=== PATIENT | male | born 1980 | race Caucasian/White ===

== ENCOUNTER 2019-08-18 12:21 | Inpatient (IN) | payer MEDICAID ==
[~2019-08-18] VITALS: Ht 177.8 cm; Wt 115.6 kg
[~2019-08-18 12:21] MED LIST: DIPH25 PO; DSS100 PO; GABA-1181 PO; ILOP2TAB2 PO; ILOP4TAB2 PO; METO25 PO; OMEP20 PO; TOPI100T37 PO; TOPI25 PO
[2019-08-18 16:00] VITALS: BP 161/106
[2019-08-18] MEDS ORDERED: LORazepam 2 MG TABLET PO PRN (16:15)
[2019-08-18] MEDS ORDERED: QUEtiapine FUMARATE 100 MG TABLET PO PRN (16:15)
[2019-08-18] MEDS ORDERED: QUET300T2 PO (16:19)
[2019-08-18] MEDS ORDERED: LORA10TA7 PO (16:26)
[2019-08-18 18:00] VITALS: BP 162/109
[2019-08-18] MEDS: CloNIDine HCL 0.1 MG TABLET PO PRN (18:29)
[2019-08-18] MEDS ORDERED: MAGNESIUM HYDROXIDE SUSPENSION 30 ML UDCUP PO PRN (18:30)
[2019-08-18] MEDS ORDERED: DOCUSATE SODIUM 100 MG CAPSULE PO PRN (18:30)
[2019-08-18] MEDS ORDERED: ONDANSETRON HCL 4 MG TABLET PO PRN (18:30)
[2019-08-18] MEDS ORDERED: LOPERAMIDE HCL 2 MG CAPSULE PO PRN (18:30)
[2019-08-18] MEDS ORDERED: ACETAMINOPHEN 325 MG TABLET PO PRN (18:30)
[2019-08-18] MEDS ORDERED: MAG HYDROX/AL HYDROX/SIMETH ES 30 ML SUSPENSION UDCUP PO PRN (18:30)
[2019-08-18] MEDS ORDERED: BACITRACIN 28.4 GM OINTMENT TP PRN (18:30)
[2019-08-18] MEDS ORDERED: OMEPRAZOLE 20 MG CAPSULE PO PRN (18:30)
[2019-08-18] MEDS ORDERED: BENZOCAINE/MENTHOL LOZENGE MM PRN (18:30)
[2019-08-18] MEDS ORDERED: IBUPROFEN 600 MG TABLET PO PRN (18:30)
[2019-08-18] MEDS ORDERED: PETROLATUM,WHITE 28 GM JELLY TP PRN (18:30)
[2019-08-18] MEDS ORDERED: ALBUTEROL SULFATE HFA 90 MCG/PUFF 8 GM INHALER IH PRN (18:30)
[2019-08-18] MEDS ORDERED: PNEUMOCOCCAL VACCINE POLYVALENT 0.5 ML VIAL [PPSV23] IM ONE (19:00)
[2019-08-18 19:48] VITALS: BP 154/101
[2019-08-18 20:00] VITALS: BP 144/97
[2019-08-18] MEDS ORDERED: LOSARTAN POTASSIUM 50 MG TABLET PO SCH (22:30)
[2019-08-19 00:15] VITALS: BP 140/105
[2019-08-19] MEDS: ZOLPIDEM TARTRATE 10 MG TABLET PO PRN (00:16)
[2019-08-19] MEDS: LORazepam 2 MG TABLET PO PRN ×2 (00:17→12:24)
[2019-08-19 00:45] VITALS: BP 138/99
[2019-08-19 06:30] VITALS: BP 133/109
[2019-08-19 08:17] LABS: BASOPHILS % (AUTO) 0.3 % (0.0-2.0); HEMATOCRIT 48.9 % (41-53); HEMOGLOBIN 16.4 g/dL (13.5-17.5); LYMPHOCYTES # (AUTO) 2.6 K/uL (1.0-4.8); LYMPHOCYTES % (AUTO) 32.8 % (22.0-44.0); MEAN CORPUSCULAR HGB CONC 33.5 G/dL (31.0-37.0); MEAN CORPUSCULAR VOLUME 86 fL (80-100); MONOCYTES # (AUTO) 0.7 K/uL (0.1-1.0); MONOCYTES % (AUTO) 9.2 % (2.0-9.0); NEUTROPHILS # (AUTO) 4.4 K/uL (1.8-7.7); NEUTROPHILS % (AUTO) 55.7 % (40.0-70.0); PLATELET COUNT (AUTO) 271 K/uL (150-450); RED BLOOD CELL COUNT(AUTO) 5.66 MIL/uL (4.50-5.90); RED CELL DISTRIBUTION WIDTH 13.4 % (11.5-14.5)
[2019-08-19 08:29] LABS: APPEARANCE,URINE CLEAR (CLEAR); BILIRUBIN,URINE NEGATIVE (NEGATIVE); GLUCOSE, URINE (UA) NEGATIVE (NEGATIVE); KETONES,URINE NEGATIVE (NEGATIVE); LEUKOCYTE ESTERASE ,URINE NEGATIVE (NEGATIVE); NITRATE,URINE NEGATIVE (NEGATIVE); OCCULT BLOOD,URINE NEGATIVE (NEGATIVE); PROTEIN,URINE NEGATIVE (NEGATIVE); UROBILINOGEN,URINE 0.2 mg/dL (<=1.0)
[2019-08-19] MEDS: GABAPENTIN 400 MG CAPSULE PO SCH ×3 (08:29→16:17)
[2019-08-19] MEDS: LOSARTAN POTASSIUM 50 MG TABLET PO SCH (08:29)
[2019-08-19 08:37] LABS: HEMOGLOBIN A1C 5.5 % (3.8-5.6)
[2019-08-19 08:39] LABS: ALANINE AMINOTRANSFERASE 31 U/L (12-78); ALBUMIN 4.2 g/dL (3.4-5.0); ALKALINE PHOSPHATASE 73 U/L (46-116); ANION GAP 9 mmol/L (8-16); ASPARTATE AMINOTRANSFERASE 18 U/L (15-37); BILIRUBIN,TOTAL 0.7 mg/dL (0.1-1.0); CALCIUM, TOTAL 9.2 mg/dL (8.8-10.5); CARBON DIOXIDE 27 mmol/L (22-29); CHLORIDE 100 mmol/L (98-107); CHOL/HDL RATIO 4.2 (4.2-7.3); CHOLESTEROL 233 mg/dL (131-200); CREATININE 0.88 mg/dL (0.60-1.30); FREE T4 (FREE THYROXINE) 0.96 ng/dL (0.76-1.46); GLOMERULAR FILTR. RATE CALC > 60 mL/min (>60); GLUCOSE,RANDOM 97 mg/dL (70-110); HDL CHOLESTEROL 55 mg/dL (40-60); LDL CHOL (CALC.) 152 mg/dL (0-130); POTASSIUM 3.7 mmol/L (3.5-5.1); SODIUM SERUM 136 mmol/L (136-145); THYROID STIMULATING HORMONE 2.74 uIU/mL (0.36-3.74); TOTAL PROTEIN, SERUM 7.9 g/dL (6.4-8.2); TRIGLYCERIDES 131 mg/dL (15-150); UREA NITROGEN, BLOOD 14 mg/dL (7-18)
[2019-08-19 08:47] LABS: AMPHET/METH SCREEN,URINE NEGATIVE (NEGATIVE); BARBITURATE SCREEN, URINE NEGATIVE (NEGATIVE); BENZODIAZEPINES SCREEN,URINE NEGATIVE (NEGATIVE); CANNABINOID SCREEN,URINE NEGATIVE (NEGATIVE); COCAINE SCREEN,URINE NEGATIVE (NEGATIVE); METHADONE SCREEN, URINE NEGATIVE (NEGATIVE); OPIATE SCREEN,URINE NEGATIVE (NEGATIVE)
[2019-08-19 08:52] LABS: PHENCYCLIDINE SCREEN,URINE NEGATIVE (NEGATIVE)
[2019-08-19] MEDS: NICOTINE 21 MG/24 HOUR PATCH TD SCH (12:20)
[2019-08-19 14:38] VITALS: BP 142/94
[2019-08-19 16:15] VITALS: BP 137/98
[2019-08-19] MEDS ORDERED: QUEtiapine FUMARATE 300 MG TABLET PO SCH (21:00)
[2019-08-20 05:14] VITALS: BP 113/81
[2019-08-20] MEDS: GABAPENTIN 400 MG CAPSULE PO SCH ×3 (07:55→16:45)
[2019-08-20] MEDS: LOSARTAN POTASSIUM 50 MG TABLET PO SCH (07:55)
[2019-08-20] MEDS: NICOTINE 21 MG/24 HOUR PATCH TD SCH (08:02)
[2019-08-20 08:44] VITALS: BP 130/79
[2019-08-20] MEDS ORDERED: QUET200T PO (15:28)
[2019-08-20] MEDS ORDERED: DOCU-275 PO (15:28)
[2019-08-20 17:28] VITALS: BP 130/80
[2019-08-20] MEDS: LORazepam 2 MG TABLET PO PRN (19:01)
[2019-08-20] MEDS ORDERED: QUEtiapine FUMARATE 200 MG TABLET PO SCH (21:00)
[2019-08-21 05:57] VITALS: BP 126/92
[2019-08-21 08:25] VITALS: BP 144/97
[2019-08-21] MEDS: LOSARTAN POTASSIUM 50 MG TABLET PO SCH (08:27)
[2019-08-21] MEDS: GABAPENTIN 400 MG CAPSULE PO SCH ×3 (08:27→16:22)
[2019-08-21] MEDS: NICOTINE 21 MG/24 HOUR PATCH TD SCH (08:28)
[2019-08-21] MEDS: CloNIDine HCL 0.1 MG TABLET PO PRN (16:22)
[2019-08-21] MEDS: LORazepam 2 MG TABLET PO PRN (16:23)
[2019-08-21 17:35] VITALS: BP 141/93
[2019-08-21] MEDS ORDERED: QUEtiapine FUMARATE 300 MG TABLET PO SCH (21:00)
[2019-08-22 00:23] VITALS: BP 123/77
[2019-08-22] MEDS: NICOTINE 21 MG/24 HOUR PATCH TD SCH (08:13)
[2019-08-22] MEDS: GABAPENTIN 400 MG CAPSULE PO SCH ×3 (08:13→16:34)
[2019-08-22] MEDS: LOSARTAN POTASSIUM 50 MG TABLET PO SCH (08:13)
[2019-08-22] MEDS: LORazepam 1 MG TABLET PO PRN (08:13)
[2019-08-22 08:52] VITALS: BP 156/100
[2019-08-22 09:56] VITALS: BP 147/90
[2019-08-22 16:47] VITALS: BP 143/92
[2019-08-22] MEDS: OLANZapine 10 MG RAPDIS TABLET PO SCH (20:31)
[2019-08-22] MEDS: MIRTAZAPINE 15 MG TABLET PO SCH (20:31)
[2019-08-22] MEDS: ZOLPIDEM TARTRATE 10 MG TABLET PO PRN (20:32)
[2019-08-23 01:21] VITALS: BP 131/79
[2019-08-23] MEDS: LORazepam 1 MG TABLET PO PRN ×2 (02:20→08:36)
[2019-08-23 08:06] VITALS: BP 134/86
[2019-08-23] MEDS: LOSARTAN POTASSIUM 50 MG TABLET PO SCH (08:32)
[2019-08-23] MEDS: GABAPENTIN 400 MG CAPSULE PO SCH ×3 (08:32→16:24)
[2019-08-23] MEDS: NICOTINE 21 MG/24 HOUR PATCH TD SCH (08:32)
[2019-08-23] MEDS ORDERED: MIRT-89 PO (15:15)
[2019-08-23] MEDS ORDERED: OLAN10TA22 PO (15:15)
[2019-08-23] MEDS ORDERED: GABA-1201 PO (15:15)
[2019-08-23] MEDS ORDERED: SERT50TA12 PO (15:15)
[2019-08-23 16:41] VITALS: BP 150/109
[2019-08-23] MEDS: OLANZapine 10 MG RAPDIS TABLET PO SCH (20:19)
[2019-08-23] MEDS: MIRTAZAPINE 15 MG TABLET PO SCH (20:19)
[2019-08-23 22:45] VITALS: BP 145/98
[2019-08-24] VITALS: BP 157/99
[2019-08-24] MEDS: LOSARTAN POTASSIUM 50 MG TABLET PO SCH (08:02)
[2019-08-24] MEDS: GABAPENTIN 400 MG CAPSULE PO SCH ×2 (08:03→12:34)
[2019-08-24] MEDS: NICOTINE 21 MG/24 HOUR PATCH TD SCH (08:05)
[2019-08-24 08:07] VITALS: BP 146/90
[2019-08-24] MEDS ORDERED: LOSA50TA37 PO (08:22)
[2019-08-24] MEDS ORDERED: SERTRALINE HCL 50 MG TABLET PO SCH (09:00)
== END 2019-08-24 13:10 | disposition home or self-care (01) | DRG 750 ==
LOC: B3A 16:44 → B2S 18:41
PROVIDERS: ADMIT Psychiatry & Neurology Psychiatry; ATTEND Psychiatry & Neurology Psychiatry
DX: F25.0 Schizoaffective disorder, bipolar type (principal); Z91.19 Patient's noncompliance with other medical treatment and regimen; B19.20 Unspecified viral hepatitis C without hepatic coma; E78.5 Hyperlipidemia, unspecified; I10 Essential (primary) hypertension; K59.00 Constipation, unspecified; F41.9 Anxiety disorder, unspecified; E78.00 Pure hypercholesterolemia, unspecified; F19.10 Other psychoactive substance abuse, uncomplicated; G47.00 Insomnia, unspecified; E66.9 Obesity, unspecified; F32.9 Major depressive disorder, single episode, unspecified; Z28.21 Immunization not carried out because of patient refusal; Z88.5 Allergy status to narcotic agent; Z79.899 Other long term (current) drug therapy; Z68.36 Body mass index [BMI] 36.0-36.9, adult; Z72.0 Tobacco use
CPT/HCPCS: 80307; 83036; 84439; 84443

== ENCOUNTER 2024-09-26 02:07 | Emergency (ER) | payer MEDICAID, OTHER ==
[~2024-09-26] VITALS: Ht 177.8 cm; Wt 72.7 kg
[~2024-09-26 02:07] MED LIST changes: -DIPH25 PO; -DSS100 PO; -GABA-1181 PO; +GABA-1201 PO; -ILOP2TAB2 PO; -ILOP4TAB2 PO; +LOSA-382 PO; -METO25 PO; +MIRT-89 PO; +OLAN10TA22 PO; -OMEP20 PO; +SERT-439 PO; -TOPI100T37 PO; -TOPI25 PO
[2024-09-26 02:19] VITALS: TEMP 97.9
[2024-09-26] MEDS: ACETAMINOPHEN 500 MG TABLET PO ONE (05:02)
[2024-09-26] MEDS: LORazepam 1 MG TABLET PO ONE (05:02)
[2024-09-26 05:08] VITALS: BP 123/77; PULSE 83; RESP 15; O2SAT 95
== END 2024-09-26 06:46 | disposition home or self-care (01) ==
LOC: EMS 02:07
DX: F32.9 Major depressive disorder, single episode, unspecified (principal); F20.9 Schizophrenia, unspecified; I10 Essential (primary) hypertension; F32.A Depression, unspecified; F17.210 Nicotine dependence, cigarettes, uncomplicated; Z98.890 Other specified postprocedural states; Z88.6 Allergy status to analgesic agent; Z79.899 Other long term (current) drug therapy
CPT/HCPCS: 99284; Z7502; Z7610